=== PATIENT | male | born 1970 | race Caucasian/White ===

== ENCOUNTER → 2016-08-06 | Outpatient (CLI) | payer BC, OTHER ==
--- NOTE | 2016-08-06 17:56 | CONS ---
DATE OF CONSULTATION: 08/06/2016 This patient is a 45-year-old gentleman who has been evaluated in the sleep center for obstructive sleep apnea/hypopnea syndrome. HISTORY OF PRESENT ILLNESS/SLEEP-WAKE EVALUATION: Patient was diagnosed with obstructive sleep apnea about 15 years ago. Since that time he has been on treatment with CPAP every night for the whole night. According to the patient, pressure in the machine is 13 cm of water. Recently the machine has been broken and does not create the necessary pressure. Patient developed snoring and has episodes of stopped breathing during sleep, grinding teeth. His sleep schedule is from 11 p.m. to 6:30 a.m. on working days and from 10 p.m. to 7 a.m. on weekends. No problem with falling asleep. No TV in bedroom. He wakes up from sleep up to 7 times at the present time. In the morning he wakes up tired, falling asleep during the day, worrying about his sleep, has irritability. [place] Sleepiness Scale has significantly increased to 17. PAST MEDICAL HISTORY: Basically negative. PAST SURGICAL HISTORY: Left knee surgery in 2013 for ACL problems. SOCIAL HISTORY: Positive for smoking about 1 pack a day for 5 years; quit 25 years ago. Alcohol consumption is occasional. MEDICATIONS: None at the present time. REVIEW OF SYSTEMS: No fevers. No double vision. No recent chest pain. No shortness of breath. No abdominal pain. No bleeding episodes. No blood in urine. No seizure episodes. Tiredness and sleepiness during the day. Multiple awakenings from sleep. FAMILY HISTORY: Diabetes, hypertension, heart problems on his mother's side. PHYSICAL EXAMINATION: GENERAL: A 45-year-old pleasant gentleman without distress. VITAL SIGNS: BP 122/73, HR 78, RR 16. Height 5 feet 10-1/2 inches, weight 216. BMI 30.5. Neck 15-1/4 inches in circumference. Temperature 97.5. Oxygen saturation at room air 97%. HEENT: PERRLA, EOMI. Evaluation of oropharynx showed tongue protrudes midline; moderately low position of soft palate; tonsils present; slight restriction of nasal breathing. NECK: Supple. No JVD. Thyroid is not palpable. LUNGS: Clear to percussion and to auscultation. Good air exchange. No wheezing or rhonchi. HEART: S1, S2 regular. No murmurs, gallops or rubs. ABDOMEN: Soft and nontender. Bowel sounds are present. No organomegaly appreciated. EXTREMITIES: No clubbing or cyanosis. CHANGE MANAGER: Awake, alert, and oriented x3. Cranial nerves 2 to 7 intact. There is no fasciculation or atrophy noted. No focal deficits observed. IMPRESSION: 1. Snoring, witnessed episodes of stopped breathing during sleep, multiple awakenings from sleep, history of obstructive sleep apnea/hypopnea syndrome; obstructive sleep apnea/hypopnea syndrome. 2. Mild obesity; body mass index of 30.5. 3. Sleepiness; significant increase in [place] Sleepiness Scale to 17. 4. Status post left knee surgery in 2013 for ACL. PLAN: 1. Home sleep apnea test for evaluation of patient's breathing during sleep. 2. CPAP titration for correction of respiratory abnormalities during sleep. 3. Watching and losing weight. 4. Sleep hygiene with regular time in bed for at least 8 hours. 5. No driving if feeling any sleepiness. Thank you very much for referring this patient for consultation. Sincerely, Oren Mayorga MD, PhD, FAASM. Diplomat of [employer], Sleep Medicine Board by [employer], [employer]
== END | disposition home or self-care (01) ==
CPT/HCPCS: 99211

== ENCOUNTER → 2016-10-14 | Outpatient (CLI) | payer BC, OTHER ==
--- NOTE | 2016-10-14 22:09 | PN ---
DATE OF SERVICE: 10/14/2016 A 45-year-old gentleman who has been followed in the sleep center for treatment of obstructive sleep apnea/hypopnea syndrome. Patient had home sleep apnea test which demonstrated mild obstructive sleep apnea and after that, the patient was started on treatment with automatic CPAP machine. Today after using CPAP, his [place] Sleepiness Scale decrease from significantly high 17 down to 6 today, which is a normal range. The patient felt that he sleeps better and feels better during the day, but still sometimes has snoring while using his CPAP unit. I checked patient's CPAP unit. Usage is 100% for more than 4 hours. Leak is only 2 L/min, which is normal range. Apnea-hypopnea index reading from the machine is 2.3, which is acceptable range. MEDICATIONS: None. PHYSICAL EXAMINATION: GENERAL: A pleasant patient without any distress. VITAL SIGNS: BP 121/75, HR 58, RR 16. Weight 211.0. Temp 98.0. Oxygen saturation at room air 100%. HEENT: PERRLA, EOMI, Evaluation of the oropharynx showed tongue protrudes midline, Moderately low position of soft palate. NECK: Supple. No JVD, Thyroid is not palpable. LUNGS: Clear to percussion and to auscultation. Good air exchange. No wheezing or rhonchi. HEART: S1, S2 regular. No murmurs, gallops, or rubs. ABDOMEN: Soft and nontender. Bowel sounds are present. No organomegaly appreciated. PAPER PRODUCTS MACHINE OPERATOR: Awake, alert, and oriented x3. Cranial nerves 2 to 7 intact. There is no fasciculation or atrophy noted. No focal deficits observed. IMPRESSION: Mild obstructive sleep apnea-hypopnea syndrome with symptoms of significant excessive daytime sleepiness. Breathing normalized with continuous positive airway pressure. Patient demonstrated 100% compliance, benefiting from treatment. [place] Sleepiness Scale normalized to 6. PLAN: 1. I adjusted maximal level of CPAP pressure up to 20 cm of water up to be sure that patient's snoring is covered with the CPAP. 2. Continue treatment with CPAP every night for the whole night. 3. Watching weight. 4. Sleep hygiene with regular time in bed for at least 8 hours. 5. No driving if feeling any sleepiness. Thank you very much for allowing me to participate in the management of your patient. Sincerely, Oren Mayorga MD, PhD, FAASM Diplomat of [place] [employer], Sleep Medicine Board by [place] [employer] [place] [employer] [employer] Super[employer] [facility] [place]
== END | disposition home or self-care (01) ==
LOC: SLEEP 14:16
PROVIDERS: ATTEND Internal Medicine
DX: G47.33 Obstructive sleep apnea (adult) (pediatric) (principal); Z99.89 Dependence on other enabling machines and devices

== ENCOUNTER → 2017-06-21 | Outpatient (CLI) | payer BC ==
[2017-06-21 08:47] LABS: Appearance,Urine Clear (Clear); Bilirubin,Urine Negative (Negative); Glucose,Urine (UA) Negative (Negative); Ketones,Urine Negative (Negative); Leukocyte Esterase,Urine Negative (Negative); Mucus,Urine Rare /hpf; Nitrite,Urine Negative (Negative); Particle Count 4432; Protein,Urine 1+ (Negative); RBC,Urine 5 /hpf (0-5); UA Billing (MACRO vs. MICRO) MICRO; Urobilinogen,Urine <2.0 mg/dL (<2.0); WBC,Urine <1 /hpf (0-5)
[2017-06-21 08:49] LABS: Basophils % (A) 0 %; CH 30.3; CHCM 31.5; Eosinophils # (A) 0.1 k/uL (0-0.7); Eosinophils % (A) 2 %; HCT 47.7 % (39.0-53.0); HDW 2.29; HGB 14.8 gm/dL (13.0-17.5); Luc # (Auto) 0.15; Luc % (Auto) 2; Lymphocytes # (A) 1.2 k/uL (1.0-4.8); Lymphocytes % (A) 17 %; MCH 29.9 pg (25.0-35.0); MCHC 30.9 g/dL (31.0-37.0); MCV 96.8 fL (80.0-100.0); Mean Platelet Volume 6.3; Monocytes # (A) 0.4 k/uL (0-1.0); Monocytes % (A) 6 %; Neutrophils # (A) 5.3 k/uL (1.3-7.7); Neutrophils % (A) 73 %; RBC 4.93 m/uL (4.30-5.90); RDW 13.2 % (11.5-15.5); WBC 7.3 k/uL (3.8-10.6); WBC (Perox) 7.77
[2017-06-21 08:53] LABS: Partial Thromboplastin Time 23.2 sec (22.0-30.0); Prothrombin Time 10.1 sec (9.0-12.0)
[2017-06-21 09:13] LABS: Anion Gap 12 mmol/L; Blood Urea Nitrogen 12 mg/dL (9-20); Carbon Dioxide 29 mmol/L (22-30); Chloride 101 mmol/L (98-107); Glucose 99 mg/dL (74-99); Non-African American GFR(MDRD) >60 (>60 ml/min/1.73 sqM); Sodium 142 mmol/L (137-145)
--- NOTE | 2017-06-21 09:35 | XR ---
EXAMINATION TYPE: XR chest 2V DATE OF EXAM: 06/21/2017 COMPARISON: None HISTORY: 46-year-old male presurgical evaluation prior to spine surgery TECHNIQUE: PA and lateral views FINDINGS: The cardiomediastinal silhouette, aorta, and pulmonary vasculature are within normal limits. Lungs an d pleural spaces are clear. IMPRESSION: No acute cardiopulmonary process.
== END | disposition home or self-care (01) ==
LOC: LABPAT 07:42
PROVIDERS: ATTEND Orthopaedic Surgery Orthopaedic Surgery of the Spine
DX: Z01.818 Encounter for other preprocedural examination (principal)
CPT/HCPCS: 71020; 80048; 81001; 85025; 85610; 85730; 86850; 86900; 86901